=== PATIENT | female | born 1990 | race Two or more races ===

== ENCOUNTER 2017-05-04 10:56 | Emergency (ER) | payer SELFPAY ==
[2017-05-04] MEDS ORDERED: NORMAL SALINE 1000 ML 1,000 ML IV PRN (12:00)
[2017-05-04 12:58] LABS: APPEARANCE,URINE CLEAR; BILIRUBIN,URINE NEGATIVE (NEGATIVE); CALCIUM OXALATE CRYSTALS,URINE RARE /HPF; GLUCOSE, URINE NEGATIVE (NEGATIVE); KETONES,URINE NEGATIVE (NEGATIVE); LEUKOCYTE ESTERASE,URINE MODERATE (NEGATIVE); NITRITE,URINE NEGATIVE (NEGATIVE); PROTEIN,URINE NEGATIVE (NEGATIVE); URINE SPECIFIC GRAVITY 1.009; UROBILINOGEN,URINE NEGATIVE mg/dL (<2.0)
[2017-05-04] MEDS ORDERED: CEFTRIAXONE 1 GM/D5W RTU 50 ML IV ONE (13:09)
[2017-05-04 13:35] LABS: ABSOLUTE EOSINOPHILS # (AUTO) 0.1 10^3/uL (0.0-0.6); ABSOLUTE LYMPHOCYTES (AUTO) 1.5 10^3/uL (0.5-4.7); ABSOLUTE MONOCYTES (AUTO) 0.6 10^3/uL (0.1-1.4); BASOPHILS % (AUTO) 0.4 % (0-2); EOSINOPHILS % (AUTO) 0.7 % (0-6); HEMATOCRIT 36.8 % (36.0-47.0); HEMOGLOBIN 11.3 g/dL (12.0-15.5); HGB HCT DIFFERENCE -2.9; LYMPHOCYTES % (AUTO) 12.5 % (13-45); MEAN CORPUSCULAR HEMOGLOBIN 22.8 pg (27.0-33.4); MEAN CORPUSCULAR HGB CONC 30.8 g/dL (32.0-36.0); MEAN CORPUSCULAR VOLUME 74 fl (80-97); MONOCYTES % (AUTO) 4.6 % (3-13); RED BLOOD COUNT 4.97 10^6/uL (3.72-5.28); RED CELL DISTRIBUTION WIDTH 16.7 % (11.5-14.0); SEGMENTED NEUTROPHILS % (AUTO) 81.8 % (42-78); WHITE BLOOD COUNT 12.2 10^3/uL (4.0-10.5)
[2017-05-04 13:57] LABS: ALANINE AMINOTRANSFERASE 69 U/L (9-52); ALBUMIN 4.7 g/dL (3.5-5.0); ALKALINE PHOSPHATASE 79 U/L (38-126); ANION GAP 13 (5-19); ASPARTATE AMINO TRANSFERASE 77 U/L (14-36); BILIRUBIN,DIRECT 0.3 mg/dL (0.0-0.4); BILIRUBIN,TOTAL 0.5 mg/dL (0.2-1.3); BLOOD UREA NITROGEN 8 mg/dL (7-20); CALCIUM 9.6 mg/dL (8.4-10.2); CARBON DIOXIDE 24 mmol/L (22-30); CHLORIDE 104 mmol/L (98-107); CREATININE RESULT 0.68 mg/dL (0.52-1.25); GLUCOSE 101 mg/dL (75-110); POTASSIUM 4.2 mmol/L (3.6-5.0); SODIUM 140.8 mmol/L (137-145); TOTAL PROTEIN 8.1 g/dL (6.3-8.2)
[2017-05-04] MEDS ORDERED: TRAMADOL HCL 50 MG TABLET PO ONE (14:45)
--- NOTE | 2017-05-04 14:45 | ER Document Report ---
ED General - General Chief Complaint: Flank Pain Stated Complaint: FLANK PAIN, ABDOMINAL PAIN Time Seen by Provider: 05/04/17 11:54 - HPI Patient complains to provider of: Right flank pain Notes: Coming in for right flank pain and dysuria ongoing for the past 12 hours. Denies fevers chills nausea vomiting. Patient denies being . Patient denies any history of kidney stones denies any history of trauma. Patient denies any recent antibiotics denies any recent travel. Patient otherwise looks to be hemodynamically stable upon my evaluation. Past Medical History - Social History Smoking Status: Never Smoker Chew tobacco use (# tins/day): No Frequency of alcohol use: None Drug Abuse: None Family History: Reviewed & Not Pertinent Past Surgical History: Reports: Hx Section Review of Systems - Review of Systems Constitutional: No symptoms reported EENT: No symptoms reported Cardiovascular: No symptoms reported Respiratory: No symptoms reported Gastrointestinal: No symptoms reported Genitourinary: Flank pain Female Genitourinary: No symptoms reported Musculoskeletal: No symptoms reported Skin: No symptoms reported Hematologic/Lymphatic: No symptoms reported Neurological/Psychological: No symptoms reported -: Yes All other systems reviewed and negative Physical Exam - Vital signs Interpretation: Normal - General General appearance: Appears well, Alert - HEENT Head: Normocephalic, Atraumatic Eyes: Normal Pupils: PERRL - Respiratory Respiratory status: No respiratory distress Chest status: Nontender Breath sounds: Normal Chest palpation: Normal - Cardiovascular Rhythm: Regular Heart sounds: Normal auscultation Murmur: No - Abdominal Inspection: Normal Distension: No distension Bowel sounds: Normal Tenderness: Nontender Organomegaly: No organomegaly - Back Back: Normal, Nontender - Extremities General upper extremity: Normal inspection, Nontender, Normal color, Normal ROM , Normal temperature General lower extremity: Normal inspection, Nontender, Normal color, Normal ROM , Normal temperature, Normal weight bearing. No: Tunde's sign - Neurological Neuro grossly intact: Yes Cognition: Normal Orientation: AAOx4 [place] Coma Scale Eye Opening: Spontaneous [place] Coma Scale Verbal: Oriented [place] Coma Scale Motor: Obeys Commands Ider Coma Scale Total: 15 Speech: Normal Motor strength normal: LUE, RUE, LLE, RLE Sensory: Normal - Psychological Associated symptoms: Normal affect, Normal mood - Skin Skin Temperature: Warm Skin Moisture: Dry Skin Color: Normal Course - Re-evaluation Re-evalutation: 05/04/17 15:50 Patient has a urinary tract infection. Patient will be started on Keflex. Patient was discharged home on pain medication and patient was encouraged follow -up primary care physician. - Laboratory Result Diagrams: 05/04/17 13:15 05/04/17 13:15 Laboratory results interpreted by me: 05/04/17 05/04/17 05/04/17 12:35 13:15 13:15 WBC 12.2 H Hgb 11.3 L MCV 74 L MCH 22.8 L MCHC 30.8 L RDW 16.7 H Seg Neutrophils % 81.8 H Lymphocytes % 12.5 L Absolute Neutrophils 10.0 H AST 77 H ALT 69 H Urine Blood SMALL H Ur Leukocyte Esterase MODERATE H Discharge - Discharge Clinical Impression: Urinary tract infection Qualifiers: Urinary tract infection type: site unspecified Hematuria presence: with hematuria Qualified Code(s): N39.0 - Urinary tract infection, site not specified Condition: Good Disposition: HOME, SELF-CARE Instructions: Urinary Tract Infection ([facility]), Cephalexin ([facility]) Additional Instructions: Take medication as prescribed. Return to the ER symptoms worsen. Follow-up with your primary care physician. Prescriptions: Cephalexin Monohydrate [Keflex 500 mg Capsule] 500 mg PO QID #28 capsule Tramadol HCl [Ultram] 50 mg PO TID #20 tablet Referrals: LOCAL,NO [Primary Care Provider] - Follow up as needed
[2017-05-04 16:15] VITALS: BP 154/98
== END 2017-05-04 15:07 | disposition home or self-care (01) ==
LOC: ER 10:56
DX: N39.0 Urinary tract infection, site not specified (principal); R10.9 Unspecified abdominal pain
CPT/HCPCS: 99284; 96361; 96365; 36415; 87040; 87086; 84702; 85025; 87077; 87088; 80053; 81001; 87186; J7030; J0696

== ENCOUNTER 2017-05-05 10:02 | Emergency (ER) | payer MEDICAID ==
--- NOTE | 2017-05-05 10:28 | ER Document Report ---
ED Medical Screen (RME) - General Chief Complaint: Abnormal Lab Results Stated Complaint: URINARY PROBLEMS Time Seen by Provider: 05/05/17 10:25 Mode of Arrival: Ambulatory Information source: Patient Notes: Patient was evaluated in the emergency department yesterday for a UTI. Patient was given a shot of Rocephin and discharged on Keflex. Patient states that she received a call at home today advising her to return as she had a positive blood culture. Patient denies any fever. Patient complains of continued right flank pain. TRAVEL OUTSIDE OF THE [place] IN LAST 30 DAYS: No - Related Data Allergies/Adverse Reactions: No Known Allergies Allergy (Verified 05/05/17 10:26) Past Medical History Renal/ Medical History: Denies: Hx Peritoneal Dialysis Past Surgical History: Reports: Hx Section Physical Exam - Vital signs Vitals: Temp Pulse Resp BP Pulse Ox 97.9 F 87 14 127/66 H 98 05/05/17 10:06 05/05/17 10:06 05/05/17 10:06 05/05/17 10:06 05/05/17 10:06 - Back Back: CVA tenderness - Right Course - Vital Signs Vital signs: Temp Pulse Resp BP Pulse Ox 97.9 F 86 14 127/66 H 98 05/05/17 10:24 05/05/17 10:24 05/05/17 10:24 05/05/17 10:24 05/05/17 10:24
[2017-05-05 11:01] LABS: ABSOLUTE EOSINOPHILS # (AUTO) 0.3 10^3/uL (0.0-0.6); ABSOLUTE MONOCYTES (AUTO) 0.5 10^3/uL (0.1-1.4); ABSOLUTE NEUT (AUTO) 12.9 10^3/uL (1.7-8.2); BASOPHILS % (AUTO) 0.2 % (0-2); HEMATOCRIT 36.7 % (36.0-47.0); HEMOGLOBIN 11.3 g/dL (12.0-15.5); HGB HCT DIFFERENCE -2.8; LYMPHOCYTES % (AUTO) 6.6 % (13-45); MEAN CORPUSCULAR HGB CONC 30.7 g/dL (32.0-36.0); MEAN CORPUSCULAR VOLUME 75 fl (80-97); MONOCYTES % (AUTO) 3.6 % (3-13); RED BLOOD COUNT 4.89 10^6/uL (3.72-5.28); RED CELL DISTRIBUTION WIDTH 16.6 % (11.5-14.0); SEGMENTED NEUTROPHILS % (AUTO) 87.6 % (42-78); WHITE BLOOD COUNT 14.7 10^3/uL (4.0-10.5)
[2017-05-05 11:17] LABS: APPEARANCE,URINE HAZY; BILIRUBIN,URINE NEGATIVE (NEGATIVE); GLUCOSE, URINE NEGATIVE (NEGATIVE); KETONES,URINE NEGATIVE (NEGATIVE); LEUKOCYTE ESTERASE,URINE LARGE (NEGATIVE); NITRITE,URINE NEGATIVE (NEGATIVE); PROTEIN,URINE 30 mg/dL (NEGATIVE); URINE SPECIFIC GRAVITY 1.012; UROBILINOGEN,URINE NEGATIVE mg/dL (<2.0)
[2017-05-05 11:41] LABS: ALANINE AMINOTRANSFERASE 65 U/L (9-52); ALBUMIN 4.5 g/dL (3.5-5.0); ALKALINE PHOSPHATASE 59 U/L (38-126); ANION GAP 12 (5-19); ASPARTATE AMINO TRANSFERASE 78 U/L (14-36); BILIRUBIN,DIRECT 0.5 mg/dL (0.0-0.4); BILIRUBIN,TOTAL 0.9 mg/dL (0.2-1.3); BLOOD UREA NITROGEN 12 mg/dL (7-20); CALCIUM 9.5 mg/dL (8.4-10.2); CARBON DIOXIDE 27 mmol/L (22-30); CHLORIDE 101 mmol/L (98-107); GLUCOSE 91 mg/dL (75-110); POTASSIUM 3.6 mmol/L (3.6-5.0); SODIUM 139.9 mmol/L (137-145); TOTAL PROTEIN 8.2 g/dL (6.3-8.2)
[2017-05-05] MEDS ORDERED: NORMAL SALINE 1000 ML 1,000 ML IV ONE ×2 (11:41)
[2017-05-05] MEDS ORDERED: CIPROFLOXACIN 400 MG/D5W RTU 200 ML IV ONE (12:10)
--- NOTE | 2017-05-05 14:40 | RADIOLOGY REPORT (SQ) ---
EXAM DESCRIPTION: [facility] RENAL STONE PROTOCOL ON COMPLETED DATE/TIME: 05/05/2017 2:00 pm REASON FOR STUDY: flank pain uti bacteremia COMPARISON: None. TECHNIQUE: CT scan of the abdomen and pelvis performed without intravenous or oral contrast. Images reviewed with lung, soft tissue, and bone windows. Reconstructed coronal and sagittal MPR images revi ewed. All images stored on PACS. All CT scanners at this facility use dose modulation, iterative reconstruction, and/or weight based d osing when appropriate to reduce radiation dose to as low as reasonably achievable (ALARA). [facility]: Dose Right [facility]: CareDose [facility]: Dose Right [facility]: Teradose 4D [facility]: Smart Familonet RADIATION DOSE: Up-to-date CT equipment and radiation dose reduction techniques were employed. CTDIv ol: 9.9 mGy. DLP: 577 mGy-cm.mGy. LIMITATIONS: None. FINDINGS: LOWER CHEST: No significant findings. No nodules or infiltrates. NON-CONTRASTED LIVER, SPLEEN, ADRENALS: Fatty liver with areas of focal fatty sparing. No liver mass . Spleen and adrenal glands are unremarkable. PANCREAS: No masses. No peripancreatic inflammatory changes. GALLBLADDER: No identified stones by CT criteria. No inflammatory changes to suggest cholecystitis. RIGHT KIDNEY AND URETER: No suspicious masses. Assessment limited by lack of IV contrast. Multiple small stones in the right kidney largest measuring approximately 4 mm. Mild right hydroureteronephr osis without identifiable obstructing stone. Dilated ureter is noted extending into the pelvis This could be secondary to radiolucent stone. Soft tissue density is seen adjacent to the ureter in the u pper pelvis thought to be related to normal right ovary. LEFT KIDNEY AND URETER: No suspicious masses. Assessment limited by lack of IV contrast. Multiple s mall stones in the left kidney largest in the lower pole measuring 7 mm. No hydronephrosis or hydro ureter. AORTA AND RETROPERITONEUM: No aneurysm. No retroperitoneal masses or adenopathy. BOWEL AND PERITONEAL CAVITY: No obvious masses or inflammatory changes. No free fluid. APPENDIX: Normal. PELVIS, BLADDER, AND ABDOMINAL WALL:IUD in the uterus. No abnormal masses. No free fluid. Bladder no rmal. Small fat containing umbilical hernia not felt to be significant. BONES: No significant findings. OTHER: No other significant finding. IMPRESSION: 1. Bilateral nephrolithiasis. 2. Mild right hydroureteronephrosis with dilated ureter extending down into the pelvis. No obstruct ing stone is identified. 3. Soft tissue density in the upper right pelvis adjacent to the ureter thought to probably represen t normal ovary. 4. Fatty liver with areas of focal fatty sparing. TECHNICAL DOCUMENTATION: JOB ID: [id number] Quality ID # [id number]: Final reports with documentation of one or more dose reduction techniques (e.g., Au tomated exposure control, adjustment of the mA and/or kV according to patient size, use of iterative reconstruction technique) 2010 [employer]- All Rights Reserved
[2017-05-05] MEDS ORDERED: CEFTRIAXONE 1 GM/D5W RTU 50 ML IV ONE (15:28)
--- NOTE | 2017-05-05 16:18 | ER Document Report ---
ED General - General Chief Complaint: Abnormal Lab Results Stated Complaint: URINARY PROBLEMS Time Seen by Provider: 05/05/17 10:25 Mode of Arrival: Ambulatory TRAVEL OUTSIDE OF THE [place] IN LAST 30 DAYS: No - HPI Patient complains to provider of: Patient coming in right flank pain Notes: Patient presents again right flank pain patient was diagnosed yesterday with UTI by myself cultures come back showing gram-negative rods patient states overnight did have fevers chills or night sweats. Patient otherwise states right flank pain continues denies any other complications. - Related Data Allergies/Adverse Reactions: No Known Allergies Allergy (Verified 05/05/17 10:26) Past Medical History - General Information source: Patient - Social History Smoking Status: Unknown if Ever Smoked Chew tobacco use (# tins/day): No Frequency of alcohol use: None Drug Abuse: None Family History: Reviewed & Not Pertinent Patient has suicidal ideation: No Patient has homicidal ideation: No Renal/ Medical History: Denies: Hx Peritoneal Dialysis Past Surgical History: Reports: Hx Section Review of Systems - Review of Systems Constitutional: No symptoms reported EENT: No symptoms reported Cardiovascular: No symptoms reported Respiratory: No symptoms reported Gastrointestinal: Other - Flank pain Genitourinary: No symptoms reported Female Genitourinary: No symptoms reported Musculoskeletal: No symptoms reported Skin: No symptoms reported Hematologic/Lymphatic: No symptoms reported Neurological/Psychological: No symptoms reported -: Yes All other systems reviewed and negative Physical Exam - Vital signs Vitals: Temp Pulse Resp BP Pulse Ox 97.9 F 87 14 127/66 H 98 05/05/17 10:06 05/05/17 10:06 05/05/17 10:06 05/05/17 10:06 05/05/17 10:06 Interpretation: Normal - General General appearance: Appears well, Alert - HEENT Head: Normocephalic, Atraumatic Eyes: Normal Pupils: PERRL - Respiratory Respiratory status: No respiratory distress Chest status: Nontender Breath sounds: Normal Chest palpation: Normal - Cardiovascular Rhythm: Regular Heart sounds: Normal auscultation Murmur: No - Abdominal Inspection: Normal Distension: No distension Bowel sounds: Normal Tenderness: Nontender Organomegaly: No organomegaly - Back Back: Normal, CVA tenderness - Right flank pain - Extremities General upper extremity: Normal inspection, Nontender, Normal color, Normal ROM , Normal temperature General lower extremity: Normal inspection, Nontender, Normal color, Normal ROM , Normal temperature, Normal weight bearing. No: Tunde's sign - Neurological Neuro grossly intact: Yes Cognition: Normal Orientation: AAOx4 [place] Coma Scale Eye Opening: Spontaneous [place] Coma Scale Verbal: Oriented [place] Coma Scale Motor: Obeys Commands Chiny[place] Coma Scale Total: 15 Speech: Normal Motor strength normal: LUE, RUE, LLE, RLE Sensory: Normal - Psychological Associated symptoms: Normal affect, Normal mood - Skin Skin Temperature: Warm Skin Moisture: Dry Skin Color: Normal Course - Re-evaluation Re-evalutation: 05/05/17 16:17 Patient was given a dose of Cipro and a dose of Rocephin. Lab work that showed worsening leukocytosis and worsening urinary tract infection and these were also sent for culture. Urinary culture did grow gram-negative rods day prior. CT scan does show hydronephrosis and hydroureter concerning for obstruction as I do not have urology here patient was transferred to [facility] with discussion with Dr. Rascon and Dr. Fernandes - Vital Signs Vital signs: Temp Pulse Resp BP Pulse Ox 97.9 F 86 14 127/66 H 98 05/05/17 10:24 05/05/17 10:24 05/05/17 10:24 05/05/17 10:24 05/05/17 10:24 - Laboratory Result Diagrams: 05/05/17 10:40 05/05/17 10:40 Laboratory results interpreted by me: 05/05/17 05/05/17 05/05/17 10:30 10:40 10:40 WBC 14.7 H Hgb 11.3 L MCV 75 L MCH 23.0 L MCHC 30.7 L RDW 16.6 H Seg Neutrophils % 87.6 H Lymphocytes % 6.6 L Absolute Neutrophils 12.9 H Direct Bilirubin 0.5 H AST 78 H ALT 65 H Urine Protein 30 H Urine Blood LARGE H Ur Leukocyte Esterase LARGE H Discharge - Discharge Clinical Impression: Pyelonephritis, Hydronephrosis with hydroureter Condition: Good Disposition: [facility]
[2017-05-05] MEDS ORDERED: ACETAMINOPHEN 325 MG TABLET PO ONE (17:14)
[2017-05-05 20:18] VITALS: BP 116/78
== END 2017-05-05 20:30 | disposition short-term general hospital (02) ==
LOC: ER 10:02
DX: N12 Tubulo-interstitial nephritis, not specified as acute or chronic (principal); N13.30 Unspecified hydronephrosis; R39.198 Other difficulties with micturition
CPT/HCPCS: 99285; 96361; 96365; 36415; 87040; 87086; 83605; 85025; 87088; 80053; 81001; 76380; J7030; J0744; J0696

== ENCOUNTER → 2018-02-15 | Outpatient (CLI) | payer MEDICAID | LOC: OD 10:03 | PROVIDERS: ATTEND Registered Nurse Women's Health Care, Ambulatory | DX: O36.1190 Maternal care for Anti-A sensitization, unspecified trimester, not applicable or unspecified (principal); Z3A.00 Weeks of gestation of pregnancy not specified | CPT/HCPCS: 36415; 86870; 86886; 86900; 86901 ==

== ENCOUNTER → 2018-03-13 | Outpatient (CLI) | payer MEDICAID | LOC: OD 10:11 | PROVIDERS: ATTEND Registered Nurse Women's Health Care, Ambulatory | DX: D80.9 Immunodeficiency with predominantly antibody defects, unspecified (principal) | CPT/HCPCS: 36415; 86870; 86886 ==

== ENCOUNTER → 2018-04-10 | Outpatient (CLI) | payer MEDICAID | LOC: OD 10:10 | PROVIDERS: ATTEND Registered Nurse Women's Health Care, Ambulatory | DX: O36.0990 Maternal care for other rhesus isoimmunization, unspecified trimester, not applicable or unspecified (principal) | CPT/HCPCS: 36415; 86870; 86886 ==

== ENCOUNTER 2018-05-29 12:10 | Inpatient (IN) | payer BC, MEDICAID ==
[2018-05-29] MEDS ORDERED: RINGERS SOLUTION,LACTATED 300 ML IV ONE (12:21)
[2018-05-29] MEDS ORDERED: OXYTOCIN/NORMAL SALINE 20 UNIT/1,000 ML RTUINJ IV PRN (12:21)
[2018-05-29] MEDS ORDERED: PENICILLIN G-K 5 MILLION UNIT VIAL ONE ×3 (13:35→22:08)
[2018-05-29] MEDS ORDERED: PENICILLIN G POTASSIUM 5,000,000 UNIT in DEXTROSE 5%-WATER 100 ML IV ONE (13:40)
[2018-05-29] MEDS: RINGERS SOLUTION,LACTATED 1,000 ML IV PRN ×2 (13:48→13:52)
[2018-05-29 13:50] LABS: APPEARANCE,URINE CLOUDY; BILIRUBIN,URINE NEGATIVE (NEGATIVE); COLOR,URINE YELLOW; GLUCOSE, URINE NEGATIVE (NEGATIVE); KETONES,URINE NEGATIVE (NEGATIVE); LEUKOCYTE ESTERASE,URINE LARGE (NEGATIVE); NITRITE,URINE NEGATIVE (NEGATIVE); PROTEIN,URINE 30 mg/dL (NEGATIVE); URINE SPECIFIC GRAVITY 1.013; UROBILINOGEN,URINE NEGATIVE mg/dL (<2.0)
[2018-05-29 13:53] LABS: ABSOLUTE EOSINOPHILS # (AUTO) 0.3 10^3/uL (0.0-0.6); ABSOLUTE LYMPHOCYTES (AUTO) 1.8 10^3/uL (0.5-4.7); ABSOLUTE MONOCYTES (AUTO) 0.5 10^3/uL (0.1-1.4); ABSOLUTE NEUT (AUTO) 4.4 10^3/uL (1.7-8.2); BASOPHILS % (AUTO) 0.4 % (0-2); EOSINOPHILS % (AUTO) 4.7 % (0-6); HEMOGLOBIN 9.5 g/dL (12.0-15.5); LYMPHOCYTES % (AUTO) 25.1 % (13-45); MEAN CORPUSCULAR HEMOGLOBIN 24.8 pg (27.0-33.4); MEAN CORPUSCULAR HGB CONC 32.8 g/dL (32.0-36.0); MEAN CORPUSCULAR VOLUME 75 fl (80-97); MONOCYTES % (AUTO) 6.8 % (3-13); PLATELET COUNT 128 10^3/uL (150-450); RED BLOOD COUNT 3.84 10^6/uL (3.72-5.28); RED CELL DISTRIBUTION WIDTH 17.9 % (11.5-14.0); TOTAL CELLS COUNTED % (AUTO) 100 %
[2018-05-29 13:56] LABS: URINE AMPHETAMINES SCREEN NEGATIVE; URINE BARBITURATES SCREEN NEGATIVE; URINE BENZODIAZEPINES SCREEN NEGATIVE; URINE COCAINE SCREEN NEGATIVE; URINE MARIJUANA (THC) SCREEN NEGATIVE; URINE METHADONE SCREEN NEGATIVE; URINE PHENCYCLIDINE SCREEN NEGATIVE
[2018-05-29] MEDS ORDERED: OXYTOCIN/NORMAL SALINE 0 UNIT/0 ML RTUINJ ONE (16:00)
--- NOTE | 2018-05-29 17:03 | Admission Physical ---
Datetime Report Generated by CPN: 05/29/2018 17:03 CURRENT ADMISSION Hx Assessment: The History has been Reviewed and is Current Chief Complaint: Scheduled Induction of Labor Indication for Induction: Maternal Diabetes; Polyhydramnios; Other Indication for Induction- Other: positive Antibody E- IOL @ 37w per MFM Admit Impression : Induction of Labor Admit Plan: Admit to Unit; Initiate Labor Induction Protocol; Initiate Protocol ALLERGIES Medication Allergies: No Medication Allergies: No Known Allergies (05/05/2017) Latex: No Latex Allergies Food Allergies: N/A Environmental Allergies: N/A OBSTETRICAL HISTORY EDC: 06/16/2018 00:00 : 5 Para: 3 Cesareans: 1 VBACs: 2 Gestational Diabetes: Yes Rh Sensitization: No Incompetent Cervix: No EVANGELISTA: No Infertility: No ART Treatment: No Uterine Anomaly: No IUGR: No Hx Previous C/S: Yes Macrosomia: No Hx Loss/Stillborn: No PIH: No Hx : No Placenta Previa/Abruption: No Depression/PP Depression: No PTL/PROM: No Post Hemorrhage: No Current Procedures: Ultrasound; NST Obstetrical History Comments: G1- 2011, SAB G2- 2012, C/S, baby girl G3- 2015, , baby girl G4- 2016, , baby girl G5- current , Anti-E antibody (Annotations: Data stored by [facility] on behalf of user) SEE RECORDS Alcohol: No Marijuana : No Cocaine: No Other Illicit Drugs: No Cigarettes: Never Smoker. [id number] MEDICAL HISTORY Diabetes: Yes Diabetes Type: Gestational Diabetes Blood Transfusion: Yes Pulmonary Disease (Asthma, TB): No Breast Disease: No Hypertension: No Director Of Resource Development Surgery: No Heart Disease: No Hosp/Surgery: Yes Autoimmune Disorder: No Anesthetic Complications: No Kidney Disease: Yes Abnormal Pap Smear: No Neuro/Epilepsy: No Psychiatric Disorders: No Other Medical Diseases: No Hepatitis/Liver Disease: No Significant Family History: No Varicosities/Phlebitis: No Trauma/Violence : No Thyroid Dysfunction: No Medical History Comments: Prior C/S with blood transfusion 2011, Blood transfusion 2014 INFECTIOUS HISTORY Gonorrhea: No Genital Herpes: No Chlamydia: No Tuberculosis: No Syphilis: No Hepatitis: No HIV/AIDS Exposure: No Rash or Viral Illness: No HPV: No PHYSICAL EXAM General: Normal HEENT: Deferred Neurologic: Normal Thyroid: Deferred Heart: Normal Lungs: Normal Breast: Normal Back: Normal Abdomen: Normal Genitourinary Exam: Normal Extremities: Normal DTRs: Normal Pelvic Type: Adequate Physical Exam Comments: pelvis proven to 8lbs Vital Signs: Reviewed; Within Normal Limits VAGINAL EXAM Dilatation: 3 Effacement: 0 Station: -4 Contraction Comments: rare MEMBRANES Membranes: Intact FETUS A EGA: 37.3 Monitoring: External US Variability: Moderate 6-25bpm Estimated Weight (gm): 3700 Presentation: Vertex Admit Comment: 28yo @37w3d into L_D for IOL secondary to antibody E. Pt. is A positive, GBS pos,Rubella Immune. Obstetrical hx complicated by GDM diet controlled, anemia this with 2 blood transfusions in the immediate pp period with first and second pregnancies. also complicated by polyhydramnious and obesity. Pt. with primary in 2011 and two VBACs (2014,2015) desires TOLAC today and BTL if needs delivery. Pt. has been given first dose of PCN and we will start pitocin induction at this time. Cephalic presentation verified via ultrasound. PLANS FOR LABOR AND DELIVERY Labor and Delivery: None Pain Management: Epidural Feeding Preference: Formula Benefit of Breast Feed Discussed: Yes Circumcision: Yes INFORMED CONSENT Assignment: Minda Blanco MD Signature: with User ID: [email or web address] : with User ID: [email or web address]
[2018-05-29 17:56] LABS: HEMOGLOBIN 9.8 g/dL (12.0-15.5); MEAN CORPUSCULAR HEMOGLOBIN 24.4 pg (27.0-33.4); MEAN CORPUSCULAR HGB CONC 32.6 g/dL (32.0-36.0); MEAN CORPUSCULAR VOLUME 75 fl (80-97); PLATELET COUNT 145 10^3/uL (150-450); RED CELL DISTRIBUTION WIDTH 18.4 % (11.5-14.0); WHITE BLOOD COUNT 8.3 10^3/uL (4.0-10.5)
[2018-05-29] MEDS: PENICILLIN G POTASSIUM 2,500,000 UNIT in DEXTROSE 5%-WATER 50 ML IV SCH (18:17)
[2018-05-29] MEDS ORDERED: LIDOCAINE 1% INJ-PF (10 MG/ML) 30 ML SDV ONE (23:11)
[2018-05-29] MEDS ORDERED: MISOPROSTOL 0.2 MG TABLET ONE (23:11)
[2018-05-29] MEDS ORDERED: OXYTOCIN/NORMAL SALINE 20 UNIT/1,000 ML RTUINJ ONE (23:12)
[2018-05-30] MEDS ORDERED: FENTANYL/BUPIVACAINE/NS/PF 200 MCG/100 ML RTUINJ EPI ONE (00:58)
[2018-05-30] MEDS ORDERED: BUPIVACAINE HCL 0.25 % INJ/PF (2.5 MG/1 ML) 30 ML VIAL ONE (00:58)
[2018-05-30] MEDS ORDERED: FENTANYL CITRATE INJ/PF 100 MCG/2 ML AMPUL ONE (00:58)
[2018-05-30] MEDS ORDERED: EPHEDRINE SULFATE INJ 50 MG/1 ML AMPULE ONE (00:58)
[2018-05-30] MEDS ORDERED: PENICILLIN G-K 5 MILLION UNIT VIAL ONE (01:47)
[2018-05-30] MEDS ORDERED: ACETAMINOPHEN WITH CODEINE #3 TABLET PO PRN (04:29)
[2018-05-30] MEDS ORDERED: PROMETHAZINE HCL 25 MG SUPP.RECT PR PRN (04:29)
[2018-05-30] MEDS ORDERED: MEASLES,MUMPS&RUBELLA VACC/PF 0.5 ML VIAL SUBCUT PRN (04:29)
[2018-05-30] MEDS ORDERED: PROMETHAZINE HCL INJ 25 MG/1 ML VIAL IV PRN (04:29)
[2018-05-30] MEDS ORDERED: PSEUDOEPHEDRINE HCL 30 MG TABLET PO PRN (04:29)
[2018-05-30] MEDS ORDERED: BENZOCAINE/MENTHOL AEROSOL SPRAY 56 ML TOP PRN (04:29)
[2018-05-30] MEDS ORDERED: OXYTOCIN/NORMAL SALINE 20 UNIT/1,000 ML RTUINJ IV PRN (04:29)
[2018-05-30] MEDS ORDERED: DIPHENHYDRAMINE HCL 25 MG CAPSULE PO PRN (04:29)
[2018-05-30] MEDS ORDERED: GLYCERIN/WITCH HAZEL LEAF 1 EACH MED..PAD TP PRN (04:29)
[2018-05-30] MEDS ORDERED: DIPH/PERTUSS(ACELL)/TETANUS VAC/PF 0.5 ML SYR (>=10YO) IM PRN (04:29)
[2018-05-30] MEDS ORDERED: MAGNESIUM HYDROXIDE SUSP 30 ML UDCUP PO PRN (04:29)
[2018-05-30] MEDS ORDERED: ACETAMINOPHEN 325 MG TABLET PO PRN (04:29)
[2018-05-30] MEDS ORDERED: DIBUCAINE 1% OINTMENT 28 GM TP PRN (04:29)
[2018-05-30] MEDS ORDERED: NA PHOS,M-B/NA PHOS,DI-BA (ADULT) 133 ML ENEMA PR PRN (04:29)
[2018-05-30] MEDS ORDERED: PROMETHAZINE HCL 25 MG TABLET PO PRN (04:29)
[2018-05-30] MEDS ORDERED: ZOLPIDEM TARTRATE 5 MG TABLET PO PRN (04:29)
[2018-05-30] MEDS: IBUPROFEN 800 MG TABLET PO SCH ×3 (06:05→21:08)
[2018-05-30] MEDS: ACETAMINOPHEN WITH CODEINE #3 TABLET PO PRN ×2 (07:27→19:43)
--- NOTE | 2018-05-30 08:16 | Delivery Summary ---
Del Sum A-C Datetime Report Generated by CPN: 05/30/2018 08:16 DELIVERY PERSONNEL DELIVERY PERSONNEL: [id number] Delivery Doctor:: Minda Blanco MD Labor and Delivery Nurse:: Joycelyn Brown RN Nursery Nurse:: Patience Neal RN Bilingual Kindergarten Teacher/MOLDER FITTING: Andrea Sotelomarilee, MOLDER FITTING Bilingual Kindergarten Teacher/MOLDER FITTING: Nusrat Green, ST MATERNAL INFORMATION Delivery Anesthesia: Epidural Medications After Delivery: Pitocin Drip 20 Units/1000ml NSS Maternal Complications: None Provider Comments: VMI delivered in SHARAN presentation. No nuchal cord. SHoulders and body delivered without difficulty. COrd doubly clamped and cut. to maternal abdomen for NRP. Placenta delivered intact spontaneously. FF at U. Good hemostasis after repair of superficial laceration at perineum. Mother and baby stable upon provider leaving the room. LABOR SUMMARY EDC: 06/16/2018 00:00 No. Babies in Womb: 1 Attempted: Yes Labor Anesthesia: Epidural LABOR INFORMATION Reason for Induction: Other Reason for Induction- Other: Onset of Labor: 05/29/2018 21:52 Complete Dilatation: 05/30/2018 01:32 Oxytocin: Induction Group B Beta Strep: positive Antibiotics # of Doses: 3 Antibiotics Time of Last Dose: 2021 Name of Antibiotic Given: PCN Steroids Given: None Reason Steroids Not Administered: Not Applicable MEMBRANES Membranes Rupture Method: Artificial Rupture of Membranes: 05/29/2018 22:02 Length of Rupture (hr): 4.27 Amniotic Fluid Color: Clear Amniotic Fluid Amount: Moderate Amniotic Fluid Odor: Normal STAGES OF LABOR Stage 1 hr: 3 Stage 1 min: 40 Stage 2 hr: 0 Stage 2 min: 46 Stage 3 hr: 0 Stage 3 min: 3 Total Time in Labor hr: 4 Total Time in Labor min: 29 VAGINAL DELIVERY Episiotomy: None Laceration #1: Vaginal Laceration Extension #1: N/A Laceration Repair: Yes Laceration Repair Note: superficial laceration repaired for hemostasis Sponge Count Correct: N/A Sharps Count Correct: Yes CSECTION DELIVERY Primary Indication: N/A Secondary Indication: N/A CSection Incidence: N/A Labor: N/A Elective: N/A CSection Incision: N/A BABY A INFORMATION Infant Delivery Date/Time: 05/30/2018 02:18 Method of Delivery: Vaginal Method of Delivery: Vaginal Born in Route : No : Successful Forceps: N/A Vacuum Extraction: N/A Shoulder Dystocia : No PRESENTATION/POSITION BABY A Presentation: Cephalic Cephalic Presentation: Vertex Vertex Position: Left Occipital Anterior Breech Presentation: N/A PLACENTA INFORMATION BABY A Placenta Delivery Time : 05/30/2018 02:21 Placenta Method of Delivery: Spontaneous Placenta Status: Delivered SCORES BABY A Heart Rate 1 min: >100 bpm Resp Effort 1 min: Good Cry Reflex Irritability 1 min: Cough or Sneeze or Pulls Away Muscle Tone 1 min: Active Motion Color 1 min: Body [place], Extremities Blue Resuscitation Effort 1 min: Tactile Stimulation SCORE 1 MIN: 9 Heart Rate 5 min: >100 bpm Resp Effort 5 min: Good Cry Reflex Irritability 5 min: Cough or Sneeze or Pulls Away Muscle Tone 5 min: Active Motion Color 5 min: Body [place], Extremities Blue Resuscitation Effort 5 min: Tactile Stimulation SCORE 5 MIN: 9 INFANT INFORMATION BABY A Gestational Age at Delivery: 37.4 Gestational Status: Early Term- 37- 38.6 Weeks Outcome : Liveborn Infant Condition : Stable Infant Sex: Male Sex: Male IDENTIFICATION BABY A Verification Date/Time: 05/30/2018 02:18 ID Band Number: [id number] Mother's Name Verified: Yes Infant RN Verifying Infant: E. Jilek RN/ R. Ertel WEIGHT/LENGTH BABY A Infant Birthweight (gm): 3850 Weight (lb): 8 Infant Weight (oz): 8 Infant Length (in): 21.00 Length (cm): 53.34 CORD INFORMATION BABY A No. Cord Vessels: 3 Nuchal Cord : N/A Cord Blood Taken: Yes-For Storage (Mom's Blood type +) ASSESSMENT BABY A Complications: None Physical Findings at Delivery: Molding of the Head Respirations: Appears Normal [employer] Agriculture Teacher/ALS Called : No Infant Care By: A. [place], RN Transferred To: Remains with Mother BABY B INFORMATION : N/A SIGNATURES Signature: Electronically signed by Minda Blanco MD ([facility]) on 05/30/2018 at 05:19 with User ID: [email or web address]
[2018-05-30] MEDS: DOCUSATE SODIUM 100 MG CAPSULE PO SCH ×2 (09:26→17:13)
[2018-05-30] MEDS: PRENATAL VITAMIN W DHA CAPSULE PO SCH (09:26)
--- NOTE | 2018-05-30 09:26 | PDOC PROGRESS REPORT ---
Subjective-OB Progress Note for:: 05/30/18 Subjective: Doing well, holding baby, voiding, eating well Physical Exam (OB) Vital Signs: Temp Pulse Resp BP Pulse Ox 98.0 F 77 16 123/69 97 05/30/18 08:05 05/30/18 08:05 05/30/18 08:05 05/30/18 08:05 05/30/18 08:05 Intake & Output 05/29/18 05/30/18 05/31/18 06:59 06:59 06:59 Intake Total 1000 Balance 1000 Weight 92 kg - PIH/Pre-Eclampsia DTR's: 1 + Clonus: Negative Headache: Absent Epigastric Pain: No Visual Changes: No - Lochia Lochia Amount: Small 10-25 ml Lochia Color: Rubra/Red - Abdomen Description: Soft Hernia Present: No Fundal Description: Firm Fundal Height: u/u - u/2 Objective-Diagnostic Laboratory: 05/29/18 17:47 05/29/18 05/29/18 05/29/18 12:23 13:23 13:23 WBC 7.0 RBC 3.84 Hgb 9.5 L Hct 29.0 L MCV 75 L MCH 24.8 L MCHC 32.8 RDW 17.9 H Plt Count 128 L Seg Neutrophils % 63.0 Lymphocytes % 25.1 Monocytes % 6.8 Eosinophils % 4.7 Basophils % 0.4 Absolute Neutrophils 4.4 Absolute Lymphocytes 1.8 Absolute Monocytes 0.5 Absolute Eosinophils 0.3 Absolute Basophils 0.0 Urine Color YELLOW Urine Appearance CLOUDY Urine pH 7.0 Ur Specific [place] 1.013 Urine Protein 30 H Urine Glucose (UA) NEGATIVE Urine Ketones NEGATIVE Urine Blood MODERATE H Urine Nitrite NEGATIVE Ur Leukocyte Esterase LARGE H Urine WBC (Auto) 15 Urine RBC (Auto) 22 Blood Type A POSITIVE Antibody Screen POSITIVE 05/29/18 17:47 WBC 8.3 RBC 4.00 Hgb 9.8 L Hct 30.0 L MCV 75 L MCH 24.4 L MCHC 32.6 RDW 18.4 H Plt Count 145 L Seg Neutrophils % Lymphocytes % Monocytes % Eosinophils % Basophils % Absolute Neutrophils Absolute Lymphocytes Absolute Monocytes Absolute Eosinophils Absolute Basophils Urine Color Urine Appearance Urine pH Ur Specific [place] Urine Protein Urine Glucose (UA) Urine Ketones Urine Blood Urine Nitrite Ur Leukocyte Esterase Urine WBC (Auto) Urine RBC (Auto) Blood Type Antibody Screen Assessment and Plan(PN) - Assessment and Plan (1) Vaginal after () Is this a current diagnosis for this admission?: Yes (2) History of delivery Is this a current diagnosis for this admission?: Yes (3) Antibody E isoimmunization affecting , antepartum Qualifiers: Fetus number: single or unspecified fetus Qualified Code(s): O36.0990 - Maternal care for other rhesus isoimmunization, unspecified trimester, not applicable or unspecified Is this a current diagnosis for this admission?: Yes - Time Spent with Patient Time with patient: Less than 15 minutes Medications reviewed and adjusted accordingly: Yes - Disposition Anticipated Discharge: Home Within: within 24 hours
[2018-05-30] MEDS: FAMOTIDINE 20 MG TABLET PO SCH ×2 (09:27→21:08)
[2018-05-30] MEDS: SENNOSIDES/DOCUSATE 8.6-50 MG 1 EACH TABLET PO SCH (09:27)
[2018-05-30] MEDS: FERROUS SULFATE 325 MG TABLET PO SCH ×2 (09:27→17:13)
[2018-05-30] MEDS: PENICILLIN G POTASSIUM 2,500,000 UNIT in DEXTROSE 5%-WATER 50 ML IV SCH (14:32)
[2018-05-31] MEDS: IBUPROFEN 800 MG TABLET PO SCH (05:22)
[2018-05-31 07:35] LABS: HEMATOCRIT 26.4 % (36.0-47.0); HEMOGLOBIN 8.8 g/dL (12.0-15.5); MEAN CORPUSCULAR HEMOGLOBIN 25.3 pg (27.0-33.4); MEAN CORPUSCULAR HGB CONC 33.1 g/dL (32.0-36.0); MEAN CORPUSCULAR VOLUME 76 fl (80-97); PLATELET COUNT 122 10^3/uL (150-450); RED BLOOD COUNT 3.47 10^6/uL (3.72-5.28); RED CELL DISTRIBUTION WIDTH 18.4 % (11.5-14.0); WHITE BLOOD COUNT 8.1 10^3/uL (4.0-10.5)
--- NOTE | 2018-05-31 08:45 | PDOC PROGRESS REPORT ---
Subjective-OB Progress Note for:: 05/31/18 Subjective: Doing well, no c/o Physical Exam (OB) Vital Signs: Temp Pulse Resp BP Pulse Ox 97.7 F 67 15 113/71 98 05/31/18 07:57 05/31/18 07:57 05/31/18 07:57 05/31/18 07:57 05/31/18 07:57 Intake & Output 05/30/18 05/31/18 06/01/18 06:59 06:59 06:59 Intake Total 3000 450 Balance 3000 450 Weight 92 kg - PIH/Pre-Eclampsia DTR's: 1 + Clonus: Negative Headache: Absent Epigastric Pain: No Visual Changes: No - Lochia Lochia Amount: Small 10-25 ml Lochia Color: Rubra/Red - Abdomen Description: Tender, Soft Hernia Present: No Fundal Description: Firm, Midline Fundal Height: u/u - u/2 Objective-Diagnostic Laboratory: 05/31/18 07:11 05/31/18 07:11 WBC 8.1 RBC 3.47 L Hgb 8.8 L Hct 26.4 L MCV 76 L MCH 25.3 L MCHC 33.1 RDW 18.4 H Plt Count 122 L Assessment and Plan(PN) - Assessment and Plan (1) Vaginal after () Is this a current diagnosis for this admission?: Yes (2) History of delivery Is this a current diagnosis for this admission?: Yes (3) Antibody E isoimmunization affecting , antepartum Qualifiers: Fetus number: single or unspecified fetus Qualified Code(s): O36.0990 - Maternal care for other rhesus isoimmunization, unspecified trimester, not applicable or unspecified Is this a current diagnosis for this admission?: Yes - Time Spent with Patient Time with patient: Less than 15 minutes Medications reviewed and adjusted accordingly: Yes - Disposition Anticipated Discharge: Home Within: when bed available
[2018-05-31] MEDS: DOCUSATE SODIUM 100 MG CAPSULE PO SCH ×2 (11:08→18:02)
[2018-05-31] MEDS: SENNOSIDES/DOCUSATE 8.6-50 MG 1 EACH TABLET PO SCH (11:08)
[2018-05-31] MEDS: FERROUS SULFATE 325 MG TABLET PO SCH ×2 (11:08→18:03)
[2018-05-31] MEDS: PRENATAL VITAMIN W DHA CAPSULE PO SCH (11:08)
[2018-05-31] MEDS: FAMOTIDINE 20 MG TABLET PO SCH ×2 (11:08→21:41)
[2018-05-31] MEDS: ACETAMINOPHEN WITH CODEINE #3 TABLET PO PRN (11:09)
[2018-06-01 08:11] VITALS: BP 131/73
[2018-06-01] MEDS: ACETAMINOPHEN WITH CODEINE #3 TABLET PO PRN ×2 (09:16→14:49)
[2018-06-01] MEDS: FAMOTIDINE 20 MG TABLET PO SCH (09:17)
[2018-06-01] MEDS: DOCUSATE SODIUM 100 MG CAPSULE PO SCH ×2 (09:18→18:29)
[2018-06-01] MEDS: FERROUS SULFATE 325 MG TABLET PO SCH ×2 (09:18→18:29)
[2018-06-01] MEDS: SENNOSIDES/DOCUSATE 8.6-50 MG 1 EACH TABLET PO SCH (09:18)
[2018-06-01] MEDS: PRENATAL VITAMIN W DHA CAPSULE PO SCH (09:18)
--- NOTE | 2018-06-01 11:16 | PDOC DISCHARGE SUMMARY ---
Final Diagnosis Discharge Date: 06/01/18 - Final Diagnosis (1) Antibody E isoimmunization affecting , antepartum Is this a current diagnosis for this admission?: Yes (2) History of delivery Is this a current diagnosis for this admission?: Yes (3) Vaginal after () Is this a current diagnosis for this admission?: Yes Discharge Data - Discharge Medication Home Medications: No122/Iron/Folic Acid [ Multi Tablet] 1 each PO DAILY 05/29/18 Reason(s) for Admission: Induction of Labor Procedures: NST Intrapartum Procedure(s): Spontaneous Vaginal Delivery Complication(s): Laceration-Vaginal Laceration-Degree: 1st - Diagnosis Test Laboratory: Temp Pulse Resp BP Pulse Ox 98.9 F 81 18 131/73 H 97 06/01/18 07:45 06/01/18 07:45 06/01/18 07:45 06/01/18 07:45 06/01/18 07:45 05/29/18 05/29/18 05/29/18 12:23 13:23 17:47 RBC 3.84 4.00 Hgb 9.5 L 9.8 L Hct 29.0 L 30.0 L Urine Opiates Screen NEGATIVE 05/31/18 07:11 RBC 3.47 L Hgb 8.8 L Hct 26.4 L Urine Opiates Screen - Discharge information/Instructions Discharge Activity: Balance Activity w/Rest, Pelvic Rest Discharge Diet: Regular Disposition: HOME, SELF-CARE Follow up with: [facility] in: 4
== END 2018-06-01 20:25 | disposition home or self-care (01) | DRG 775 ==
LOC: LR 12:10 → 2S 05-30 05:17
PROVIDERS: ADMIT Student in an Organized Health Care Education/Training Program; ATTEND Student in an Organized Health Care Education/Training Program
PROC: 10907ZC Drainage of Amniotic Fluid, Therapeutic from Products of Conception, Via Natural or Artificial Opening (ICD-10-PCS; 2018-05-29)
PROC: 4A1HXCZ Monitoring of Products of Conception, Cardiac Rate, External Approach (ICD-10-PCS; 2018-05-29)
PROC: 10E0XZZ Delivery of Products of Conception, External Approach (ICD-10-PCS; principal; 2018-05-30)
PROC: 0HQ9XZZ Repair Perineum Skin, External Approach (ICD-10-PCS; 2018-05-30)
PROC: 3E033VJ Introduction of Other Hormone into Peripheral Vein, Percutaneous Approach (ICD-10-PCS; 2018-05-30)
DX: O99.824 Streptococcus B carrier state complicating childbirth (principal); O36.0930 Maternal care for other rhesus isoimmunization, third trimester, not applicable or unspecified; O34.211 Maternal care for low transverse scar from previous cesarean delivery; O99.214 Obesity complicating childbirth; E66.9 Obesity, unspecified; Z68.37 Body mass index [BMI] 37.0-37.9, adult; O70.0 First degree perineal laceration during delivery; O24.420 Gestational diabetes mellitus in childbirth, diet controlled; O40.3XX0 Polyhydramnios, third trimester, not applicable or unspecified; Z3A.37 37 weeks gestation of pregnancy; Z37.0 Single live birth
CPT/HCPCS: 36415; 80307; 81001; 82962; 85025; 85027; 86592; 86850; 86870; 86900; 86901; 86902; 86920; 86922; 94760; J2540; J2590; J3010; J3490

== ENCOUNTER 2018-06-27 17:03 | Emergency (ER) | payer MEDICAID ==
[2018-06-27 17:35] VITALS: BP 118/75
--- NOTE | 2018-06-27 17:44 | RADIOLOGY REPORT (SQ) ---
EXAM DESCRIPTION: ELBOW RIGHT OVER 2 VIEWS COMPLETED DATE/TIME: 06/27/2018 5:31 pm REASON FOR STUDY: Fall - R elbow pain and L foot pain COMPARISON: None. NUMBER OF VIEWS: Four views. TECHNIQUE: AP, lateral, and both oblique radiographic images acquired of the right elbow. LIMITATIONS: None. FINDINGS: MINERALIZATION: Normal. BONES: There is a fracture of the radial head in the sagittal plane. This is seen on a single view. JOINT: No effusion. SOFT TISSUES: No soft tissue swelling. No foreign body. OTHER: No other significant finding. IMPRESSION: Radial head fracture. TECHNICAL DOCUMENTATION: JOB ID: [id number] [employer]- All Rights Reserved Reading location - IP/workstation name: [email or web address]
--- NOTE | 2018-06-27 17:45 | RADIOLOGY REPORT (SQ) ---
EXAM DESCRIPTION: FOOT LEFT COMPLETE COMPLETED DATE/TIME: 06/27/2018 5:31 pm REASON FOR STUDY: Fall - R elbow pain and L foot pain COMPARISON: None. NUMBER OF VIEWS: Three views. TECHNIQUE: AP, lateral and oblique radiographic images acquired of the left foot. LIMITATIONS: None. FINDINGS: MINERALIZATION: Normal. BONES: No acute fracture or dislocation. No worrisome bone lesions. JOINTS: No effusions. SOFT TISSUES: No soft tissue swelling. No foreign body. OTHER: No other significant finding. IMPRESSION: NEGATIVE STUDY OF THE LEFT FOOT. NO RADIOGRAPHIC EVIDENCE OF ACUTE INJURY. TECHNICAL DOCUMENTATION: JOB ID: [id number] [employer]- All Rights Reserved Reading location - IP/workstation name: [email or web address]
[2018-06-27] MEDS ORDERED: IBUPROFEN 800 MG TABLET PO ONE (17:56)
[2018-06-27] MEDS ORDERED: ACETAMINOPHEN 325 MG TABLET PO ONE (17:56)
--- NOTE | 2018-06-27 17:56 | ER Document Report ---
HPI - HPI Patient complains to provider of: Injured right elbow and left foot Onset: Yesterday Pain Level: 4 Context: 28-year-old female tripped with her baby on her chest with a sling and so she fell all her weight on her right elbow to save the baby. She also mildly sprained her left foot. This occurred yesterday and she had an abrasion over the left olecranon that she cleaned and put a Band-Aid on. Her baby is 1-month- old and she is not breast-feeding. Associated Symptoms: None Exacerbated by: Movement - She is unable to straighten her arm completely and when it swelled up today she knew there was something wrong with it because she could not use that elbow Relieved by: Denies Similar symptoms previously: No Recently seen / treated by doctor: No - ROS ROS below otherwise negative: Yes Systems Reviewed and Negative: Yes All other systems reviewed and negative - MUSCULOSKELETAL Musculoskeletal: REPORTS: Extremity pain - Left ankle, Right Elbow Past Medical History - General Information source: Patient - Social History Smoking Status: Never Smoker Lives with: Family Family History: Reviewed & Not Pertinent Patient has suicidal ideation: No Patient has homicidal ideation: No - Medical History Medical History: Negative Renal/ Medical History: Denies: Hx Peritoneal Dialysis Past Surgical History: Reports: Hx Section Vertical Provider Document - CONSTITUTIONAL Agree With Documented VS: Yes Exam Limitations: No Limitations - INFECTION CONTROL TRAVEL OUTSIDE OF THE [place] IN LAST 30 DAYS: No - MUSCULOSKELETAL/EXTREMETIES Musculoskeletal/Extremeties: Tender, Edema - right elbow, abrasion over the left olecranon without infection or drainage Notes: lateral left foot where she showed me the injury is nontender without swelling she does not think anything is broken. - NEURO Level of Consciousness: Awake, Alert Motor/Sensory: No Motor Deficit, No Sensory Deficit Notes: 2+ radial pulse Course - Re-evaluation Re-evalutation: 06/27/18 18:24 X-ray showed radial head fracture that is nondisplaced and the left foot x-ray is negative. - Vital Signs Vital signs: Temp Pulse Resp BP Pulse Ox 98.1 F 86 20 118/75 95 06/27/18 17:30 06/27/18 17:30 06/27/18 17:30 06/27/18 17:30 06/27/18 17:30 Procedures - Immobilization Right Elbow Time completed: 18:24 Pre-Proc Neuro Vasc Exam: Normal Immobilizer type: Long arm posterior, Sling Performed by: PCT Post-Proc Neuro Vasc Exam: Normal Alignment checked and good: Yes Discharge - Discharge Clinical Impression: Left foot sprain, Radial head fracture, Olecranon abrasion Condition: Good Disposition: HOME, SELF-CARE Instructions: Radial Head Fracture ([facility]), Sprain ([facility]), Splint Precautions ([facility] ), Splint Pending Casting ([facility]), Oral Narcotic Medication ([facility]), Cephalexin ([facility] ) Additional Instructions: splint sling Call the orthopedist for an appointment this week Elevate her arm to reduce the throbbing Motrin for inflammation Hydrocodone every 4 hours as needed for severe pain Prescriptions: Hydrocodone Bit/Acetaminophen [Hydrocodon-Acetaminophen 5-325] 1 each PO Q4HP PRN #20 tablet PRN Reason: Cephalexin Monohydrate [Keflex 500 mg Capsule] 500 mg PO QID #28 capsule Referrals: GABINO ZALDIVAR MD [ACTIVE STAFF] - Follow up tomorrow
[2018-06-27] MEDS ORDERED: CEPHALEXIN 500 MG CAPSULE PO ONE (18:03)
== END 2018-06-27 18:35 | disposition home or self-care (01) ==
LOC: ER 17:03
DX: S52.121A Displaced fracture of head of right radius, initial encounter for closed fracture (principal); S93.602A Unspecified sprain of left foot, initial encounter; S50.312A Abrasion of left elbow, initial encounter; W19.XXXA Unspecified fall, initial encounter
CPT/HCPCS: 99283; 73080; 73630; 29105; J3490 ×2

== ENCOUNTER → 2019-01-21 | Outpatient (CLI) | payer BC, MEDICAID | LOC: LAB 13:21 | PROVIDERS: ATTEND Nurse Practitioner Acute Care | DX: R30.0 Dysuria (principal) | CPT/HCPCS: 87086; 87088; 87186 ==

== ENCOUNTER → 2020-11-21 | Outpatient (CLI) | payer BC ==
[~2020-11-21] MED LIST: COVID-19 VACCINE (PFIZER)/PF 30 MCG/0.3 ML VIAL IM ONE; EPINEPHRINE INJ/PF 1 MG/1 ML AMPULE IM PRN
== END ==
LOC: EMPHEALTH 14:25
PROVIDERS: ATTEND Internal Medicine
DX: Z23 Encounter for immunization (principal)
CPT/HCPCS: 91300